=== PATIENT | male | born 1975 | race Caucasian/White ===

== ENCOUNTER 2018-02-11 11:16 | Outpatient (CLI) ==
--- NOTE | 2018-02-11 13:27 | DI ---
EXAM: Three views of the left hand HISTORY: Left hand injury and pain. COMPARISON: None FINDINGS: Left hand demonstrates no cortical irregularity or displaced fracture. There is no lytic o r blastic lesion. The soft tissues are unremarkable. There is mild periosteal reaction. Carpal bon es. Metacarpal bones are normal. IMPRESSION: No acute abnormality of the left hand.
== END 2018-02-11 11:17 | disposition home or self-care (01) ==
LOC: RAD 11:16
PROVIDERS: ATTEND Family Medicine
DX: S69.92XA Unspecified injury of left wrist, hand and finger(s), initial encounter (principal)